=== PATIENT | male | born 1975 | race Asian ===

== ENCOUNTER 2017-04-14 18:01 | Inpatient (IN) | payer MEDICAID ==
[~2017-04-14] VITALS: Ht 188 cm; Wt 101.2 kg
[2017-04-14] MEDS: LORazepam 2 MG/ML VIAL IM ONE (22:54)
[2017-04-14] MEDS: DiphenhydrAMINE HCL 50 MG/ML VIAL IM ONE (22:55)
[2017-04-14] MEDS: HALOPERIDOL LACTATE 5 MG/ML VIAL IM ONE (22:55)
[2017-04-15] MEDS ORDERED: ZOLPIDEM TARTRATE 10 MG TABLET PO PRN (00:15)
[2017-04-15] MEDS: DiphenhydrAMINE HCL 50 MG/ML VIAL IM ONE (01:30)
[2017-04-15] MEDS: LORazepam 2 MG/ML VIAL IM ONE (01:30)
[2017-04-15] MEDS: HALOPERIDOL LACTATE 5 MG/ML VIAL IM ONE (01:30)
[2017-04-15 02:50] LABS: BASOPHILS # (AUTO) 0.15 K/uL (0.00-0.20); BASOPHILS % (AUTO) 1.2 % (0.0-2.0); EOSINOPHILS # (AUTO) 0.11 K/uL (0.00-0.70); EOSINOPHILS % (AUTO) 0.88 % (1.0-6.0); HEMATOCRIT 47.9 % (41-53); HEMOGLOBIN 16.5 g/dL (13.5-17.5); LYMPHOCYTES # (AUTO) 2.3 K/uL (1.0-4.8); LYMPHOCYTES % (AUTO) 18.4 % (22.0-44.0); MEAN CORPUSCULAR HEMOGLOBIN 29.8 pg (26.0-34.0); MEAN CORPUSCULAR HGB CONC 34.4 G/dL (31.0-37.0); MEAN CORPUSCULAR VOLUME 87 fL (80-100); MONOCYTES # (AUTO) 1.1 K/uL (0.1-1.0); MONOCYTES % (AUTO) 8.8 % (2.0-9.0); NEUTROPHILS # (AUTO) 8.8 K/uL (1.8-7.7); NEUTROPHILS % (AUTO) 70.7 % (40.0-70.0); PLATELET COUNT (AUTO) 295 K/uL (150-450); RED BLOOD CELL COUNT(AUTO) 5.53 MIL/uL (4.50-5.90); RED CELL DISTRIBUTION WIDTH 13.2 % (11.5-14.5); WHITE BLOOD COUNT (AUTO) 12.5 K/uL (4.5-11.0)
[2017-04-15 03:05] LABS: ANION GAP 8 mmol/L (8-16); CARBON DIOXIDE 29 mmol/L (22-29); CHLORIDE 101 mmol/L (98-107); CREATININE 1.13 mg/dL (0.60-1.30); GLOMERULAR FILTR. RATE CALC > 60 mL/min (>60); SODIUM SERUM 138 mmol/L (136-145); UREA NITROGEN, BLOOD 7 mg/dL (7-18)
[2017-04-15 03:11] LABS: ALANINE AMINOTRANSFERASE 81 U/L (12-78); ALBUMIN 3.9 g/dL (3.4-5.0); ASPARTATE AMINOTRANSFERASE 48 U/L (15-37); BILIRUBIN,TOTAL 0.7 mg/dL (0.1-1.0); CHOL/HDL RATIO 4.6 (4.2-7.3); TOTAL PROTEIN, SERUM 7.6 g/dL (6.4-8.2)
[2017-04-15 10:55] VITALS: BP 126/65
[2017-04-15] MEDS: HALOPERIDOL 5 MG TABLET PO PRN (10:56)
[2017-04-15] MEDS: LORazepam 2 MG TABLET PO PRN (10:56)
[2017-04-15] MEDS ORDERED: IBUPROFEN 400 MG TABLET PO PRN (11:15)
[2017-04-15] MEDS ORDERED: ACETAMINOPHEN 325 MG TABLET PO PRN (11:15)
[2017-04-16] MEDS: LORazepam 2 MG TABLET PO PRN ×2 (07:47→16:20)
[2017-04-16] MEDS: HALOPERIDOL 5 MG TABLET PO PRN ×2 (07:47→16:20)
[2017-04-16] MEDS: NICOTINE 14 MG/24 HOUR PATCH TD SCH (08:09)
[2017-04-16] MEDS ORDERED: DiphenhydrAMINE HCL 50 MG/ML VIAL IM ONE (09:00)
[2017-04-16 12:59] VITALS: BP 130/76
[2017-04-16] MEDS: GuaiFENesin [SUGAR-FREE] 200 MG/10 ML SOLUTION UDCUP PO PRN (16:20)
[2017-04-16 20:00] VITALS: BP 127/81
[2017-04-16] MEDS: OLANZapine 10 MG RAPDIS TABLET PO SCH (21:00)
[2017-04-17 05:17] VITALS: BP 122/70
[2017-04-17 08:07] VITALS: BP 115/62
[2017-04-17] MEDS: LORazepam 2 MG TABLET PO PRN ×2 (08:56→16:52)
[2017-04-17] MEDS: OLANZapine 10 MG RAPDIS TABLET PO SCH ×2 (08:56→16:52)
[2017-04-17] MEDS: NICOTINE 14 MG/24 HOUR PATCH TD SCH (09:00)
[2017-04-17 16:00] VITALS: BP 129/79
[2017-04-17] MEDS: GuaiFENesin [SUGAR-FREE] 200 MG/10 ML SOLUTION UDCUP PO PRN (18:01)
[2017-04-18 04:57] VITALS: BP 122/70
[2017-04-18 08:05] VITALS: BP 132/75
[2017-04-18] MEDS: GuaiFENesin [SUGAR-FREE] 200 MG/10 ML SOLUTION UDCUP PO PRN (09:51)
[2017-04-18] MEDS: NICOTINE 14 MG/24 HOUR PATCH TD SCH (09:51)
[2017-04-18] MEDS: HALOPERIDOL 5 MG TABLET PO PRN ×2 (09:51→16:33)
[2017-04-18] MEDS: OLANZapine 10 MG RAPDIS TABLET PO SCH ×2 (09:51→16:33)
[2017-04-18] MEDS: LORazepam 2 MG TABLET PO PRN ×2 (09:51→16:33)
[2017-04-18 16:00] VITALS: BP 128/88
[2017-04-19 06:15] VITALS: BP 123/79
[2017-04-19 08:24] VITALS: BP 134/75
[2017-04-19] MEDS: OLANZapine 10 MG RAPDIS TABLET PO SCH ×2 (09:51→16:15)
[2017-04-19] MEDS: NICOTINE 14 MG/24 HOUR PATCH TD SCH (09:52)
[2017-04-19 16:00] VITALS: BP 140/88
[2017-04-19] MEDS: LORazepam 2 MG TABLET PO PRN (16:15)
== END 2017-04-19 17:50 | disposition home or self-care (01) | DRG 750 ==
LOC: EMS 18:03 → AHU 04-15 10:24 → B3A 04-16 19:40
PROVIDERS: ADMIT Psychiatry & Neurology Child & Adolescent Psychiatry; ATTEND Psychiatry & Neurology Child & Adolescent Psychiatry
DX: F25.0 Schizoaffective disorder, bipolar type (principal); D72.829 Elevated white blood cell count, unspecified; F17.200 Nicotine dependence, unspecified, uncomplicated; F15.90 Other stimulant use, unspecified, uncomplicated; F11.90 Opioid use, unspecified, uncomplicated; R00.0 Tachycardia, unspecified
CPT/HCPCS: 87081; 96372; 99285; G0480; J1200; J1630; J2060; J3230

== ENCOUNTER 2017-06-30 18:55 | Emergency (ER) | payer MEDICAID | END 2017-06-30 19:56 | disposition left against medical advice (07) | LOC: EMS 18:59 | DX: M79.673 Pain in unspecified foot (principal); Z53.21 Procedure and treatment not carried out due to patient leaving prior to being seen by health care provider ==

== ENCOUNTER 2018-09-16 14:30 | Emergency (ER) | payer MEDICAID ==
[~2018-09-16] VITALS: Ht 177.8 cm; Wt 113.6 kg
[2018-09-16 14:34] VITALS: BP 154/99
[2018-09-16 14:44] LABS: GLUCOSE,POINT OF CARE 234 MG/DL (70-110)
[2018-09-16] MEDS ORDERED: ARIP2 PO (17:19)
[2018-09-16] MEDS ORDERED: FAMO20 PO (17:19)
[2018-09-16] MEDS ORDERED: AMPH10TA19 PO (17:19)
[2018-09-16] MEDS ORDERED: ANTIDEPRESSANT PO (17:19)
== END 2018-09-16 17:34 | disposition left against medical advice (07) ==
LOC: EMS 14:31
DX: R21 Rash and other nonspecific skin eruption (principal); M79.10 Myalgia, unspecified site; M19.90 Unspecified osteoarthritis, unspecified site; E11.9 Type 2 diabetes mellitus without complications; F20.9 Schizophrenia, unspecified; F17.210 Nicotine dependence, cigarettes, uncomplicated; F19.90 Other psychoactive substance use, unspecified, uncomplicated; F11.90 Opioid use, unspecified, uncomplicated; Z53.21 Procedure and treatment not carried out due to patient leaving prior to being seen by health care provider

== ENCOUNTER 2025-06-17 05:15 | Day surgery (SDC) | payer OTHER ==
[2025-06-17] VITALS (11 sets, daily range): BP systolic 115–148; BP diastolic 70–92; PULSE 53–69
[~2025-06-17] VITALS: Ht 188 cm; Wt 104.5 kg
[~2025-06-17 05:15] MED LIST: ACET-2247 PO; AMLO-257 PO; ASPI-1450 PO; AZEL137S8 NS; BUPR1FIL3 SL; DICL100G60 TP; EMPA10TA3 PO; FEXO-353 PO; HYDR50CA7 PO; ISOS30TA92 PO; LOSA-381 PO; METF-1211 PO; NITR0.4T52 SL; OLAN2.5T78 PO; OXCA300T70 PO; ROSU10TA98 PO; TRIA16.911 NASAL; VENL-68 PO
[2025-06-17] MEDS ORDERED: SODIUM CHLORIDE 0.9% 1,000 ML ONE (05:27)
[2025-06-17] MEDS: SODIUM CHLORIDE 0.9% 1,000 ML IV ONE (06:14)
[2025-06-17 06:20] LABS: PLATELET COUNT (AUTO) 201 K/uL (150-450); RED BLOOD CELL COUNT(AUTO) 5.45 MIL/uL (4.50-5.90); RED CELL DISTRIBUTION WIDTH 13.4 % (11.5-14.5); WHITE BLOOD COUNT (AUTO) 6.0 K/uL (4.5-11.0)
[2025-06-17 06:27] LABS: CALCIUM, TOTAL 8.4 mg/dL (8.8-10.5); CREATININE 0.81 mg/dL (0.60-1.30); GLOMERULAR FILTR. RATE CALC > 60 mL/min (>60); GLUCOSE,RANDOM 91 mg/dL (70-110); SODIUM SERUM 140 mmol/L (136-145); UREA NITROGEN, BLOOD 13 mg/dL (7-18)
[2025-06-17 06:32] LABS: ASPARTATE AMINOTRANSFERASE 12 U/L (15-37); TOTAL PROTEIN, SERUM 7.0 g/dL (6.4-8.2)
[2025-06-17] MEDS ORDERED: SODIUM BICARBONATE 50 MEQ/50 ML VIAL ONE (06:48)
[2025-06-17] MEDS ORDERED: IOHEXOL 300 MG/ML 100 ML VIAL ONE (06:48)
[2025-06-17] MEDS ORDERED: HEPARIN SODIUM 1000 UNITS/NS 1,000 ML ONE (06:48)
[2025-06-17] MEDS ORDERED: VERAPAMIL HCL 2.5 MG/ML 2 ML VIAL ONE (06:48)
[2025-06-17] MEDS ORDERED: LIDOCAINE/PF 1% 30 ML VIAL ONE (06:48)
[2025-06-17] MEDS ORDERED: NITROGLYCERIN 50 MG/D5% WATER 250 ML ONE (06:48)
[2025-06-17] MEDS ORDERED: FentaNYL CITRATE PF 100 MCG/2 ML VIAL ONE (07:50)
[2025-06-17] MEDS ORDERED: MIDAZOLAM HCL 2 MG/2 ML VIAL ONE (07:50)
[2025-06-17] MEDS: LIDOCAINE 1% 30 ML/SOD BICARB 8.4% 4 ML SQ ONE (08:05)
[2025-06-17] MEDS: VERAPAMIL HCL 2.5 MG/ML 2 ML VIAL IARTER ONE (08:05)
[2025-06-17] MEDS: IOHEXOL 300 MG/ML 100 ML VIAL ICOR ONE (08:05)
[2025-06-17] MEDS: MIDAZOLAM HCL 2 MG/2 ML VIAL IVP ONE (08:05)
[2025-06-17] MEDS: HEPARIN SODIUM,PORCINE 1,000 UNITS/ML 10 ML VIAL IARTER ONE (08:05)
[2025-06-17] MEDS: HEPARIN SODIUM 1000 UNITS/NS 1,000 ML IARTER ONE (08:06)
[2025-06-17] MEDS: FentaNYL CITRATE PF 100 MCG/2 ML VIAL IVP ONE (08:06)
[2025-06-17] MEDS: NITROGLYCERIN/D5W 50 MG/250 ML IV BOTTLE IARTER ONE (08:07)
== END 2025-06-17 13:25 | disposition home or self-care (01) ==
LOC: CATHLAB 05:15
PROVIDERS: ATTEND Internal Medicine
DX: R07.89 Other chest pain (principal); I25.119 Atherosclerotic heart disease of native coronary artery with unspecified angina pectoris; I25.2 Old myocardial infarction; I10 Essential (primary) hypertension; E78.5 Hyperlipidemia, unspecified; Z79.82 Long term (current) use of aspirin; Z79.84 Long term (current) use of oral hypoglycemic drugs; Z79.899 Other long term (current) drug therapy; Z95.5 Presence of coronary angioplasty implant and graft; Z98.890 Other specified postprocedural states
CPT/HCPCS: 93458; 93005; 80053; 85025; 85610; 85730; 36415; 99152; J3010; J1644; J3490 ×4; J2250; J7030; Q9967